=== PATIENT | female | born 1990 | race African-American/Black ===

== ENCOUNTER 2016-04-14 09:07 | Emergency (ER) | payer OTHER ==
[~2016-04-14] VITALS: Ht 165.1 cm; Wt 111.0 kg
[~2016-04-14 09:07] MED LIST: MELO-1 PO; PRED20 PO; VENTAER INH; ZITHTAB PO
[2016-04-14 09:11] VITALS: BP 126/61; PULSE 72; RESP 20; TEMP 98.1; O2SAT 96
[2016-04-14 09:19] VITALS: BP 126/61; PULSE 67; RESP 20; TEMP 98.1; O2SAT 98
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
[2016-04-14 09:38] VITALS: O2SAT 98
[2016-04-14] MEDS ORDERED: SODIUM CHLOR 0.9% 1000 ML INJ 1,000 ML IV ONE (09:45)
[2016-04-14] MEDS ORDERED: SODIUM CHLORIDE 0.9% FLUSH 5 ML FLUSH IVF PRN (09:45)
[2016-04-14] MEDS ORDERED: ACETAMINOPHEN 325 MG TAB PO ONE (09:45)
[2016-04-14] MEDS: RESP: ALBUTEROL 2.5 MG/IPRATROPIUM 0.5 MG NEB (SCH) INH (09:45)
[2016-04-14 09:53] LABS: AUTOMATED NEUTROPHIL # 3.8 TH/MM3 (1.8-7.7); BASOPHIL # 0.1 TH/MM3 (0-0.2); BASOPHIL % 0.8 % (0.0-2.0); EOSINOPHIL # 0.2 TH/MM3 (0-0.4); EOSINOPHIL % 2.3 % (0.0-4.0); HEMATOCRIT 37.8 % (35.0-46.0); HEMO FLAGS DIFF FINAL; LYMPH % 36.3 % (9.0-44.0); LYMPHOCYTE # 2.6 TH/MM3 (1.0-4.8); MEAN CORPUSCULAR HEMOGLOBIN 28.1 PG (27.0-34.0); MEAN CORPUSCULAR HGB CONC 31.9 % (32.0-36.0); MONO % 6.5 % (0.0-8.0); NEUT % 54.1 % (16.0-70.0); PLATELET COUNT 194 TH/MM3 (150-450); RED CELL DISTRIBUTION WIDTH 14.8 % (11.6-17.2); WHITE BLOOD COUNT 7.1 TH/MM3 (4.0-11.0)
[2016-04-14 10:00] LABS: PROTHROMBIN TIME - PATIENT 10.6 SEC (9.8-11.6)
[2016-04-14 10:03] LABS: APTT (PATIENT) 28.7 SEC (24.3-30.1)
--- NOTE | 2016-04-14 10:09 | RADRPT ---
EXAM DATE/TIME: 04/14/2016 09:46 [facility] COMPARISON: CHEST SINGLE AP, January 30, 2016, 15:19. INDICATIONS : Chest pain MEDICAL HISTORY : None. SURGICAL HISTORY : None. ENCOUNTER: Initial ACUITY: 1 day PAIN SCORE: 3/10 LOCATION: Bilateral chest FINDINGS: A single view of the chest demonstrates the lungs to be symmetrically aerated without evidence of mas s, infiltrate or effusion. The cardiomediastinal contours are unremarkable. Osseous structures are intact with a stable S-shaped scoliosis of the dorsal spine. CONCLUSION: No acute cardiopulmonary process. Jeovany Gross MD on April 14, 2016 at 10:07 Board Certified Radiologist. This report was verified electronically.
[2016-04-14 10:12] LABS: ANION GAP 8 MEQ/L (5-15); BICARBONATE 25.7 MEQ/L (21.0-32.0); BLOOD UREA NITROGEN 8 MG/DL (7-18); CHLORIDE 105 MEQ/L (98-107); GLOMERULAR FILTRATION RATE 105 ML/MIN (>89); POTASSIUM 3.9 MEQ/L (3.5-5.1); SODIUM (NA) 139 MEQ/L (136-145)
[2016-04-14 10:40] LABS: BETA HCG QUANT LESS THAN 1 MIU/ML (0-5); CREATINE KINASE 301 U/L (26-192)
[2016-04-14 10:53] LABS: CKMB 2.1 NG/ML (0.5-3.6)
--- NOTE | 2016-04-14 11:17 | EKG ---
Date Performed: 04/14/2016 Time Performed: 09:15:27 PTAGE: 26 years EKG: Sinus rhythm WITH SINUS ARRHYTHMIA NONSPECIFIC T-WAVE ABNORMALITY BORDERLINE ECG NO PREVIOUS TRACING DOCTOR: Fede Stinson Interpretating Date/Time 04/14/2016 11:17:08
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
[2016-04-14] MEDS ORDERED: VENTAER INH (12:10)
[2016-04-14 12:22] VITALS: BP 130/63; PULSE 64; RESP 20; TEMP 98.1; O2SAT 98
== END 2016-04-14 13:09 | disposition home or self-care (01) ==
LOC: NEPC 09:07
DX: J45.901 Unspecified asthma with (acute) exacerbation (principal); G43.019 Migraine without aura, intractable, without status migrainosus; I49.8 Other specified cardiac arrhythmias; S09.90XA Unspecified injury of head, initial encounter; F17.210 Nicotine dependence, cigarettes, uncomplicated; T75.4XXA Electrocution, initial encounter; W86.0XXA Exposure to domestic wiring and appliances, initial encounter; W19.XXXA Unspecified fall, initial encounter
CPT/HCPCS: 70450; 71010; 80048; 82550; 82552; 83735; 84484; 84702; 85025; 85610; 85730; 93005; 94640; 94664; 99285; J7030

== ENCOUNTER 2016-09-09 07:13 | Emergency (ER) | payer MEDICAID, OTHER ==
[~2016-09-09] VITALS: Ht 160 cm; Wt 136.9 kg
[2016-09-09 07:15] VITALS: BP 149/85; PULSE 66; RESP 16; TEMP 98.6; O2SAT 96
--- NOTE | 2016-09-09 07:33 | PD ---
HPI Chief Complaint: Skin Problem Time Seen by Provider: 07:22 Travel History International Travel<30 days: No Contact w/Intl Traveler<30days: No Traveled to known affect area: No History of Present Illness HPI Patient is a 26 year old female who presents to emergency room for evaluation of lump on breast. Patient reports that she has been working out every day, reports that she has noticed lumps under her breasts. Patient reports that her grandmother has history of breast cancer, patient concerned that she may have breast cancer at this time. Patient with no fevers or chills, no other complaints. PFSH Past Medical History Anemia: Yes (IRON DEFICIENCY) Asthma: Yes Anxiety: Yes Depression: Yes (CHILDHOOD) Diabetes: Yes (GESTATIONAL) Diminished Hearing: No Implanted Vascular Access Dvce: Yes (RIGHT SUBCLAVIAN: REMOVED JUNE 2012) Neurologic: Yes (MENINGITIS: MAR 2012 HOSPITALIZED FOR 3 MONTHS) Shingles: Yes (AGE 17) ?: Not LMP: 6 weeks ago, states she took a test-negative : 3 Para: 1 Miscarriage: 2 Past Surgical History Section: Yes (03/10/14) Oral Surgery: Yes (MOLAR EXTRACTION) Tonsillectomy: Yes (AND ADNOIDS) Family History Family Breast Cancer: Yes (grandmother) Social History Alcohol Use: No Tobacco Use: Yes (2 CIGARETTES A DAY) Substance Use: No Allergies-Medications (Allergen,Severity, Reaction): Coded Allergies: Penicillin (Verified Allergy, Mild, CAN'T BREATHE, 09/09/16) Reported Meds & Prescriptions Reported Meds & Active Scripts Active No Active Prescriptions or Reported Medications Review of Systems General / Constitutional: No: Fever Eyes: No: Visual changes HENT: No: Headaches Cardiovascular: No: Chest Pain or Discomfort Respiratory: No: Shortness of Breath Gastrointestinal: No: Abdominal Pain Genitourinary: No: Dysuria Musculoskeletal: No: Pain Skin: No Rash Neurologic: No: Weakness Psychiatric: No: Depression Endocrine: No: Polydipsia Hematologic/Lymphatic: No: Easy Bruising Physical Exam Narrative GENERAL: Well-nourished, well-developed patient. SKIN: Focused skin assessment warm/dry. Patient with nonfluctuant abscess under right breast, there is a small nodule under left breast - nonfluctuant with no drainage HEAD: Normocephalic. EYES: No scleral icterus. No injection or drainage. NECK: Supple, trachea midline. No JVD or lymphadenopathy. CARDIOVASCULAR: Regular rate and rhythm without murmurs, gallops, or rubs. RESPIRATORY: Breath sounds equal bilaterally. No accessory muscle use. GASTROINTESTINAL: Abdomen soft, non-tender, nondistended. MUSCULOSKELETAL: No cyanosis, or edema. BACK: Nontender without obvious deformity. No CVA tenderness. Data Data Last Documented VS Vital Signs Date Time Temp Pulse Resp B/P Pulse Ox O2 Delivery O2 Flow Rate FiO2 09/09/16 07:15 98.6 66 16 149/85 96 [facility] Medical Decision Making Medical Screen Exam Complete: Yes Emergency Medical Condition: Yes Interpretation(s) Vital Signs Date Time Temp Pulse Resp B/P Pulse Ox O2 Delivery O2 Flow Rate FiO2 09/09/16 07:15 98.6 66 16 149/85 96 Differential Diagnosis Differential includes breast abscess, breast cancer, breast nodule Narrative Course 26-year-old female who presents to emergency room for evaluation of breast nodules. Reports that for the past week, she has been working out and has been taking walks outside, reports that she has noticed nodules under her bilateral breast and was concerned that she may have breast cancer. Patient reports that one of the nodules has been draining pus, reports that she was just concerned for breast cancer so she came to the emergency room for evaluation. On evaluation, patient does have area of what appears to be a nonfluctuant abscess to her right breast, discussed need for warm compresses to the area. There is also nodules to her left breast, discussed need to follow-up with her grain oilseed or pasture grower as she will need a mammogram to rule out breast cancer. Patient understands that a mammogram or ultrasound cannot be performed in the emergency room to rule out breast cancer and that she will need to follow-up with her grain oilseed or pasture grower for further studies. Patient with no signs of infection at this time. Vital signs are stable. Patient does not suffer any acute emergencies at this time. Signs and symptoms of when to return to the emergency room was reviewed with patient in detail. Diagnosis Primary Impression: Breast abscess of female Additional Impression: Breast mass in female Patient Instructions: General Instructions Departure Forms: Tests/Procedures, Work Release Enter return to work date: Sep 12, 2016 Special Instructions: Light duty for 1 week Additional Instructions: Apply warm compresses to area of pain and inflammation Please follow up with your grain oilseed or pasture grower as soon as possible as your will need further studies to evaluate for possible breast cancer, no studies were performed in the ER today to evaluate for breast cancer as this will need to be performed as out patient. Return to ER as needed Please take acetaminophen or Motrin for pain. Scripts No Active Prescriptions or Reported Meds Disposition: 01 DISCHARGE HOME Condition: Stable Skye Gonzalez DO Sep 09, 2016 07:33
== END 2016-09-09 07:35 | disposition home or self-care (01) ==
LOC: PHED 07:13
DX: N61.1 Abscess of the breast and nipple (principal); N63 Unspecified lump in breast; Z80.3 Family history of malignant neoplasm of breast; Z72.0 Tobacco use
CPT/HCPCS: 99282

== ENCOUNTER 2016-12-18 10:44 | Emergency (ER) | payer MEDICAID, OTHER ==
[~2016-12-18] VITALS: Ht 165.1 cm; Wt 126.5 kg
[2016-12-18 10:48] VITALS: BP 140/81; PULSE 58; RESP 14; TEMP 98.9; O2SAT 98
[2016-12-18] MEDS ORDERED: ALBU6.7H INH (10:54)
[2016-12-18] MEDS ORDERED: MELO-1 PO (10:54)
[2016-12-18] MEDS ORDERED: MULTTAB67 PO (10:54)
[2016-12-18] MEDS ORDERED: FERR325C PO (10:54)
--- NOTE | 2016-12-18 11:26 | PD ---
HPI . Tailbone injury Chief Complaint: Fall Time Seen by Provider: 10:56 Travel History International Travel<30 days: No Contact w/Intl Traveler<30days: No Traveled to known affect area: No History of Present Illness HPI This patient presents to us status post slip and fall. The fall occurred immediately prior presentation. She states that she tried to stop the fall with her left arm. She states that she struck her left forearm and her coccyx and presents to us complaining of pain in those locations. The coccyx pain is worse than the forearm pain. Pain is exacerbated by sitting and better on lying on her side. The quality of pain is described as "aggravating." The severity of the pain is 7/10. PFSH Past Medical History Anemia: Yes (IRON DEFICIENCY) Asthma: Yes Anxiety: Yes Depression: Yes (CHILDHOOD) Diabetes: Yes (GESTATIONAL) Patient Takes Glucophage: No Diminished Hearing: No Implanted Vascular Access Dvce: Yes (RIGHT SUBCLAVIAN: REMOVED JUNE 2012) Neurologic: Yes (MENINGITIS: MAR 2012 HOSPITALIZED FOR 3 MONTHS) Shingles: Yes (AGE 17) Tetanus Vaccination: < 5 Years Influenza Vaccination: No ?: Unknown LMP: 09/16/16 : 3 Para: 1 Miscarriage: 2 Past Surgical History Section: Yes (03/10/14) Oral Surgery: Yes (MOLAR EXTRACTION) Tonsillectomy: Yes (AND ADNOIDS) Social History Alcohol Use: No Tobacco Use: No (2 CIGARETTES A DAY) Substance Use: No Allergies-Medications (Allergen,Severity, Reaction): Coded Allergies: penicillin G (Unverified Allergy, Mild, CAN'T BREATHE, 12/18/16) Reported Meds & Prescriptions Reported Meds & Active Scripts Active Reported Iron (Ferrous Sulfate) 325 Mg Cap 325 Mg PO DAILY Multiple Vitamin 1 Tab 1 Tab PO DAILY Proventil Hfa 6.7 GM Inh (Albuterol Sulfate) 90 Mcg/Act Aer 2 Puff INH Q4-6H PRN Meloxicam 15 Mg Tab 15 Mg PO BID PRN Review of Systems Except as stated in HPI: all other systems reviewed are Neg Physical Exam Narrative GENERAL: Patient is lying on the left side in no acute distress. SKIN: Warm and dry. Intact. HEAD: Normocephalic/atraumatic. EYES: Pupils are equal. Extraocular movements are intact. NECK: Full range of motion with no apparent pain. CARDIOVASCULAR: Regular rate. RESPIRATORY: Nonlabored. MUSCULOSKELETAL: Left forearm has no bruising, swelling, abrasion, deformity. It is diffusely tender. She is distally neurovascularly intact. Back is tender in the area of the coccyx. NEUROLOGICAL: Nonfocal. PSYCHIATRIC: Appropriate mood and affect. Data Data Last Documented VS Vital Signs Date Time Temp Pulse Resp B/P (MAP) Pulse Ox O2 Delivery O2 Flow Rate FiO2 12/18/16 10:48 98.9 58 14 140/81 (100) 98 Orders Orders Forearm (2vws) (12/18/16 11:06) Pelvis, Ap Only (Routine) (12/18/16 11:06) Ketorolac Inj (Toradol Inj) (12/18/16 12:00) MDM Medical Decision Making Medical Screen Exam Complete: Yes Emergency Medical Condition: Yes Differential Diagnosis Differential diagnosis of extremity trauma includes but is not limited to fracture, sprain or strain, dislocation, contusion Differential diagnosis includes but is not limited to muscular low back pain, DDD, spinal stenosis, epidural abscess, sciatica, kidney infection or stone. Narrative Course This patient presents with pain in her left forearm and her coccyx status post a fall. X-rays are pending. The posterior of her x-rays was delayed which delayed her disposition. The x-rays were independently viewed by me. Last Impressions [facility] X-[facility] 12/18/16 1106 Signed Impressions: Service Date/Time: Sunday, December 18, 2016 12:11 - CONCLUSION: Unremarkable examination of the left forearm. Ger Crowe MD Pelvis X-Ray 12/18/16 1106 Signed Impressions: Service Date/Time: Sunday, December 18, 2016 12:17 - CONCLUSION: Unremarkable examination of the pelvis. Ger Crowe MD Diagnosis Primary Impression: Contusion of left forearm Qualified Codes: S50.12XA - Contusion of left forearm, initial encounter Additional Impression: Coccyx contusion Qualified Codes: S30.0XXA - Contusion of lower back and pelvis, initial encounter Patient Instructions: Contusion in Adults (DC), General Instructions Additional Instructions: I recommend ibuprofen or Aleve as needed for pain. Ice to the area may also help. You may find it more comfortable to sit on a doughnut. Disposition: 01 DISCHARGE HOME Condition: Stable Mary Goldstein MD Dec 18, 2016 11:26
[2016-12-18] MEDS ORDERED: KETOROLAC TROMETHAMINE 60 MG/2 ML (IM) VIAL IM ONE (12:00)
--- NOTE | 2016-12-18 13:13 | RADRPT ---
EXAM DATE/TIME: 12/18/2016 12:11 [facility] COMPARISON: No previous studies available for comparison. INDICATIONS : Pain post fall. MEDICAL HISTORY : None. SURGICAL HISTORY : None. ENCOUNTER: Initial ACUITY: 1 day PAIN SCORE: 8/10 LOCATION: Left Forearm. FINDINGS: Two view examination of the left forearm demonstrates no evidence of fracture or dislocation. Bony m ineralization is normal. The soft tissue structures are intact. CONCLUSION: Unremarkable examination of the left forearm. Ger Crowe MD on December 18, 2016 at 13:11 Board Certified Radiologist. This report was verified electronically.
--- NOTE | 2016-12-18 13:13 | RADRPT ---
EXAM DATE/TIME: 12/18/2016 12:17 [facility] COMPARISON: No previous studies available for comparison. INDICATIONS : Pain post fall. MEDICAL HISTORY : None. SURGICAL HISTORY : None. ENCOUNTER: Initial ACUITY: 1 day PAIN SCORE: 10/10 LOCATION: Pelvis FINDINGS: A single frontal view of the pelvis demonstrates no evidence of fracture. The bony pelvic ring is in tact. Bony mineralization is normal. The soft tissues are intact. CONCLUSION: Unremarkable examination of the pelvis. Ger Crowe MD on December 18, 2016 at 13:11 Board Certified Radiologist. This report was verified electronically.
== END 2016-12-18 13:35 | disposition home or self-care (01) ==
LOC: NEPD 10:44
DX: S50.12XA Contusion of left forearm, initial encounter (principal); S30.0XXA Contusion of lower back and pelvis, initial encounter; W01.0XXA Fall on same level from slipping, tripping and stumbling without subsequent striking against object, initial encounter; D50.9 Iron deficiency anemia, unspecified; J45.909 Unspecified asthma, uncomplicated; F41.9 Anxiety disorder, unspecified
CPT/HCPCS: 72170; 73090; 96372; 99284; J1885